=== PATIENT | female | born 1965 | race Caucasian/White ===

== ENCOUNTER 2017-11-09 09:14 | Day surgery (SDC) | payer BC ==
[2017-11-08 13:18] VITALS: BMI 21.1
[2017-11-09 09:40] LABS: #Basophils 0.1 thou/uL (0.0-0.2); #Eosinphils 0.1 thou/uL (0.0-0.7); #Lymphocytes 0.9 thou/uL (1.20-3.40); #Monocytes 0.3 thou/uL (0.11-0.59); #Neutrophils 1.9 thou/uL (1.40-6.50); %Basophils 1.7 % (0.0-1.0); %Eosinophils 4.5 % (0.0-10.0); %Lymphocytes 28.1 % (21.0-51.0); %Monocytes 8.2 % (0.0-10.0); %Neutrophils 57.5 % (42.0-75.0); Hemoglobin 14.4 g/dL (12.0-16.0); Mean Corpuscular HGB CONC 34.1 g/dL (32.0-36.0); Mean Corpuscular Hemoglobin 33.1 pg (27.0-31.0); Mean Corpuscular Volume 96.8 fL (78.0-98.0); Mean Platelet Volume 6.9 fL (7.4-10.4); Platelet Count 175 thou/uL (130-400); RBC Distribution Width 10.9 % (11.5-14.5); Red Blood Cell (RBC) Count 4.36 mill/uL (4.20-5.40); White Blood Cell (WBC) Count 3.2 thou/uL (4.8-10.8)
[2017-11-09] MEDS ORDERED: CEFAZOLIN/Water 2 GM/20 ML SYRINGE ONE (09:59)
[2017-11-09] MEDS ORDERED: Lidocaine 1% PF 5 ML VIAL ONE (10:16)
[2017-11-09] MEDS ORDERED: PROPOFOL 200 MG/20 ML VIAL ONE (10:16)
[2017-11-09] MEDS ORDERED: Bupivacaine HCl 0.5%/Epinephrine 1:200,000/PF 30 ml Vial ONE (10:30)
[2017-11-09] MEDS ORDERED: Lidocaine 2% PF Inj 2 ML VIAL ONE (10:30)
[2017-11-09] MEDS ORDERED: Fentanyl 100 MCG/2 ML VIAL ONE (10:41)
[2017-11-09] MEDS ORDERED: Midazolam HCl 2 mg/2 ml Vial ONE (10:41)
--- NOTE | 2017-11-09 13:20 | OP ---
PREOPERATIVE DIAGNOSIS: Completed chemotherapy. SURGEON: Tim Del Cid M.D. PROCEDURE PERFORMED: Removal of MediPort. INDICATIONS: A 52-year-old female who has completed her chemotherapy and no longer requires a MediPo rt. FINDINGS: Intact system. PROCEDURE: After informed consent was obtained, the patient was taken to the operating room and give n local anesthesia infiltrated subcutaneously and deep. A transverse incision performed throug h the old scar. Subcutaneous divided sharply down to the pocket. Sutures removed. The MediPort ext racted. The tubing extracted. Hemostasis was assured. The tract was closed with 3-0 Vicryl sutures [id number]. Hemostasis again with electrocautery. Subcutaneous reapproximated with interrupte d 3-0 Vicryl. Skin closed with a running subcuticular 4-0 Rapide. Dermabond applied. The patient t olerated the procedure well and was transferred to recovery in good condition. Sponge and needle cou nt verified correct x2.
--- NOTE | 2017-11-11 21:12 | EKG ---
Test Reason : PREOP Blood Pressure : / mmHG Vent. Rate : 058 BPM Atrial Rate : 058 BPM P-R Int : 120 ms QRS Dur : 084 ms QT Int : 436 ms P-R-T Axes : 071 069 067 degrees QTc Int : 428 ms Sinus bradycardia Otherwise normal ECG When compared with ECG of 25-OCT-2016 13:15, Nonspecific T wave abnormality no longer evident in Anterior leads Confirmed by Caty BOWENS ([id number]) on 11/11/2017 9:12:39 PM Referred By: EBENEZER Confirmed By:Caty BOWENS
== END 2017-11-09 12:15 | disposition home or self-care (01) ==
LOC: SDC 09:14
PROVIDERS: ATTEND Surgery
PROC: 05HY33Z Insertion of Infusion Device into Upper Vein, Percutaneous Approach (ICD-10-PCS; principal; 2017-11-09)
DX: Z45.2 Encounter for adjustment and management of vascular access device (principal); Z85.038 Personal history of other malignant neoplasm of large intestine
CPT/HCPCS: 36415; 85025; 93005; 93010; J0670; J2001; J2250; J2704; J3010